=== PATIENT | male | born 1985 | race Caucasian/White ===

== ENCOUNTER 2018-12-09 01:40 | Emergency (ER) | payer OTHER ==
--- NOTE | 2018-12-09 02:44 | ER ---
Nurse's Notes [facility] Name: Dexter Rojas Age: 33 yrs Sex: Male : 1985 Arrival Date: 12/09/2018 Time: 01:42 Bed 13 Private MD: Diagnosis: Insect bite (nonvenomous), right lower leg;Contusion of right lower leg Presentation: 12/09 01:50 Presenting complaint: Patient states: "We were at the restaurant at around 0030H when I cc3 noticed swelling, pain, and bruising to my right lower leg. Not sure if it's bitten by an insect". Transition of care: patient was not received from another setting of care. Onset of symptoms was December 09, 2018. Risk Assessment: Do you want to hurt yourself or someone else? Patient reports no desire to harm self or others. Initial Sepsis Screen: Does the patient meet any 2 criteria? No. Patient's initial sepsis screen is negative. Does the patient have a suspected source of infection? No. Patient's initial sepsis screen is negative. Care prior to arrival: None. 01:50 Method Of Arrival: Wheelchair cc3 01:50 Acuity: MARITZA 4 cc3 Triage Assessment: 01:50 Bite description: bite sustained to right lower leg is patient unsure if bitten by an cc3 insect was sustained 1-2 hours ago. by an unknown animal. General: Appears in no apparent distress. uncomfortable, Behavior is calm, cooperative, appropriate for age. Pain: Complains of pain in right lower leg Pain currently is 8 out of 10 on a pain scale. EENT: No signs and/or symptoms were reported regarding the EENT system. Neuro: Level of Consciousness is awake, alert, obeys commands, Oriented to person, place, time, situation, Appropriate for age. Cardiovascular: Denies chest pain, Patient's skin is warm and dry. Respiratory: Airway is patent Respiratory effort is even, unlabored, Respiratory pattern is regular, symmetrical. GI: Abdomen is round non-distended. : No signs and/or symptoms were reported regarding the genitourinary system. Derm: right lower leg swelling, pain and bruising. Musculoskeletal: Range of motion: limited in right leg. 01:50 Bite description: animal information: vaccination(s) is unknown. cc3 Historical: - Allergies: :50 Sandee; cc3 01:50 Amoxicillin; cc3 - PSHx: 01:50 Vasectomy; cc3 - Immunization history:: Adult Immunizations up to date. - Social history:: Smoking status: Patient/guardian denies using tobacco, never smoked. - Ebola Screening: : No symptoms or risks identified at this time. - Family history:: not pertinent. Screenin:50 Abuse screen: Denies threats or abuse. Denies injuries from another. Nutritional cc3 screening: No deficits noted. Tuberculosis screening: No symptoms or risk factors identified. Fall Risk Ambulatory Aid- None/Bed Rest/Nurse Assist (0 pts). Gait- Normal/Bed Rest/Wheelchair (0 pts) Mental Status- Oriented to own ability (0 pts). Assessment: 01:50 Derm: Skin is intact, Skin is pink, warm \\T\\ dry. normal. cc3 02:50 Reassessment: Patient appears in no apparent distress at this time. Patient and/or cc3 family updated on plan of care and expected duration. Pain level reassessed. Patient is alert, oriented x 3, equal unlabored respirations, skin warm/dry/pink. Patient refused for further diagnostic workup and treatment, Dr. Machado informed and he discharged the patient home with prescription given. No IV cannula in situ. Patient left ER vitally stable and ambulatory with his friend. Patient states feeling better. Patient states symptoms have improved. Vital Signs: 01:50 BP 145 / 87; Pulse 116; Resp 20 S; Temp 98(TE); Pulse Ox 98% on R/A; Weight 95.25 kg cc3 (R); Height 5 ft. 9 in. (175.26 cm) (R); Pain 8/10; 02:25 BP 143 / 79; Pulse 110; Resp 18 S; Pulse Ox 98% on R/A; cc3 01:50 Body Mass Index 31.01 (95.25 kg, 175.26 cm) cc3 ED Course: 01:42 Patient arrived in ED. ds1 01:48 Glo Winchester is Primary Nurse. cc3 01:50 Arm band placed on right wrist. Patient notified of wait time. cc3 01:50 Patient has correct armband on for positive identification. Bed in low position. Call cc3 light in reach. Side rails up X 1. Pulse ox on. NIBP on. 02:02 Triage completed. cc3 02:19 Speedy Machado MD is Attending Physician. [facility] 02:50 No provider procedures requiring assistance completed. Patient did not have IV access cc3 during this emergency room visit. Administered Medications: 02:53 Not Given (Patient Refused): Motrin 600 mg PO once cc3 Outcome: 02:44 Discharge ordered by . [facility] 02:50 Discharged to home ambulatory, with friend. cc3 02:50 Condition: stable 02:50 Discharge instructions given to patient, Instructed on discharge instructions, follow up and referral plans. medication usage, Demonstrated understanding of instructions, follow-up care, medications, Prescriptions given X 2. 02:54 Patient left the ED. cc3 Signatures: Speedy Machado MD MD cha Sanford, Demi ds1 Glo Winchester cc3
--- NOTE | 2018-12-09 02:44 | EDPHYS ---
Physician Documentation [facility] Name: Dexter Rojas Age: 33 yrs Sex: Male : 1985 Arrival Date: 12/09/2018 Time: 01:42 Bed 13 Private MD: ED Physician Speedy Machado HPI: 12/09 02:41 This 33 yrs old Male presents to ER via Wheelchair with complaints of Insect viraj Bite, Leg Swelling. 02:41 The patient presents with decreased range of motion, pain, that is acute. The viraj complaints affect the right mardid. Context: The problem was sustained at a bar or nightclub. Onset: The symptoms/episode began/occurred just prior to arrival. Modifying factors: The symptoms are alleviated by elevating leg, remaining still, the symptoms are aggravated by weight bearing. Associated signs and symptoms: The patient has no apparent associated signs or symptoms. Treatment prior to arrival includes: no previous treatment. Severity of symptoms: At their worst the symptoms were mild, in the emergency department the symptoms are unchanged. The patient has not experienced similar symptoms in the past. Historical: - Allergies: 01:50 Sandee; cc3 01:50 Amoxicillin; cc3 - PSHx: 01:50 Vasectomy; cc3 - Immunization history:: Adult Immunizations up to date. - Social history:: Smoking status: Patient/guardian denies using tobacco, never smoked. - Ebola Screening: : No symptoms or risks identified at this time. - Family history:: not pertinent. ROS: 02:41 Constitutional: Negative for fever, chills, and weight loss, Eyes: Negative for injury, viraj pain, redness, and discharge, ENT: Negative for injury, pain, and discharge, Neck: Negative for injury, pain, and swelling, Cardiovascular: Negative for chest pain, palpitations, and edema, Respiratory: Negative for shortness of breath, cough, wheezing, and pleuritic chest pain, Abdomen/GI: Negative for abdominal pain, nausea, vomiting, diarrhea, and constipation, Back: Negative for injury and pain, : Negative for injury, bleeding, discharge, and swelling, Skin: Negative for injury, rash, and discoloration, Neuro: Negative for headache, weakness, numbness, tingling, and seizure, Psych: Negative for depression, anxiety, suicide ideation, homicidal ideation, and hallucinations, Allergy/Immunology: Negative for hives, rash, and allergies, Endocrine: Negative for neck swelling, polydipsia, polyuria, polyphagia, and marked weight changes, Hematologic/Lymphatic: Negative for swollen nodes, abnormal bleeding, and unusual bruising. 02:41 MS/extremity: Positive for pain, swelling, tenderness, of the right madird. Exam: 02:41 Constitutional: This is a well developed, well nourished patient who is awake, alert, viraj and in no acute distress. Head/Face: Normocephalic, atraumatic. Eyes: Pupils equal round and reactive to light, extra-ocular motions intact. Lids and lashes normal. Conjunctiva and sclera are non-icteric and not injected. Cornea within normal limits. Periorbital areas with no swelling, redness, or edema. ENT: Nares patent. No nasal discharge, no septal abnormalities noted. Tympanic membranes are normal and external auditory canals are clear. Oropharynx with no redness, swelling, or masses, exudates, or evidence of obstruction, uvula midline. Mucous membranes moist. Neck: Trachea midline, no thyromegaly or masses palpated, and no cervical lymphadenopathy. Supple, full range of motion without nuchal rigidity, or vertebral point tenderness. No Meningismus. Chest/axilla: Normal chest wall appearance and motion. Nontender with no deformity. No lesions are appreciated. Cardiovascular: Regular rate and rhythm with a normal S1 and S2. No gallops, murmurs, or rubs. Normal PMI, no JVD. No pulse deficits. Respiratory: Lungs have equal breath sounds bilaterally, clear to auscultation and percussion. No rales, rhonchi or wheezes noted. No increased work of breathing, no retractions or nasal flaring. Abdomen/GI: Soft, non-tender, with normal bowel sounds. No distension or tympany. No guarding or rebound. No evidence of tenderness throughout. Back: No spinal tenderness. No costovertebral tenderness. Full range of motion. Male : Normal genitalia with no discharge or lesions. Skin: Warm, dry with normal turgor. Normal color with no rashes, no lesions, and no evidence of cellulitis. Neuro: Awake and alert, GCS 15, oriented to person, place, time, and situation. Cranial nerves II-XII grossly intact. Motor strength 5/5 in all extremities. Sensory grossly intact. Cerebellar exam normal. Normal gait. Psych: Awake, alert, with orientation to person, place and time. Behavior, mood, and affect are within normal limits. 02:41 Musculoskeletal/extremity: Extremities: noted in the right mad[place]: decreased ROM, pain, swelling, tenderness. Vital Signs: 01:50 BP 145 / 87; Pulse 116; Resp 20 S; Temp 98(TE); Pulse Ox 98% on R/A; Weight 95.25 kg cc3 (R); Height 5 ft. 9 in. (175.26 cm) (R); Pain 8/10; 02:25 BP 143 / 79; Pulse 110; Resp 18 S; Pulse Ox 98% on R/A; cc3 01:50 Body Mass Index 31.01 (95.25 kg, 175.26 cm) cc3 MDM: 02:19 Patient medically screened. [facility] 02:43 Data reviewed: vital signs, nurses notes, radiologic studies, plain films. [facility] 12/09 02:40 Order name: Ice pack; Complete Time: 02:53 [facility] 12/09 02:40 Order name: Damien Wrap; Complete Time: 02:53 [facility] Administered Medications: 02:53 Not Given (Patient Refused): Motrin 600 mg PO once cc3 Disposition: 12/09/18 02:44 Discharged to Home. Impression: Insect bite (nonvenomous), right lower leg, Contusion of right lower leg. - Condition is Stable. - Discharge Instructions: Insect Bite, [id number], Contusion, Insect Bite, Contusion, [id number]. - Prescriptions for Ibuprofen 600 mg Oral Tablet - take 1 tablet by ORAL route 3 times per day As needed take with food; 21 tablet. Tylenol- Codeine #3 300-30 mg Oral Tablet - take 2 tablets by ORAL route every 6 hours As needed; 20 tablet. - Medication Reconciliation Form, Thank You Letter, Antibiotic Education, Prescription Opioid Use form. - Follow up: Private Physician; When: 2 - 3 days; Reason: Recheck today's complaints, Continuance of care, Re-evaluation by your physician. - Problem is new. - Symptoms have improved. Signatures: Dispatcher [employer] Speedy Real MD MD cha Cordel, Charlene cc3 Corrections: (The following items were deleted from the chart) 02:54 02:44 12/09/2018 02:44 Discharged to Home. Impression: Insect bite (nonvenomous), right cc3 lower leg; Contusion of right lower leg. Condition is Stable. Forms are Medication Reconciliation Form, Thank You Letter, Antibiotic Education, Prescription Opioid Use. Follow up: Private Physician; When: 2 - 3 days; Reason: Recheck today's complaints, Continuance of care, Re-evaluation by your physician. Problem is new. Symptoms have improved. viraj
[2018-12-09] MEDS ORDERED: IBUPROFEN 200 MG TAB PO ONE (03:02)
[2018-12-09] MEDS ORDERED: IBUPROFEN 400 MG TAB ONE (03:02)
== END 2018-12-09 02:54 | disposition home or self-care (01) ==
LOC: ER 01:40
DX: S80.11XA Contusion of right lower leg, initial encounter (principal); W57.XXXA Bitten or stung by nonvenomous insect and other nonvenomous arthropods, initial encounter; Y93.9 Activity, unspecified; Y92.9 Unspecified place or not applicable; Z88.1 Allergy status to other antibiotic agents; Z88.8 Allergy status to other drugs, medicaments and biological substances
CPT/HCPCS: 99283